=== PATIENT | male | born 1980 | race Hispanic/Latino ===

== ENCOUNTER 2018-02-15 11:09 | Outpatient (CLI) | payer BC ==
--- NOTE | 2018-02-15 11:55 | XRay Report ---
XRAY CHEST TWO VIEWS: 02/15/18 11:09:00 CLINICAL: Cough. COMPARISON: None FINDINGS: Normal heart and pulmonary vasculature. The lungs are normally expanded and clear.Mild degenerative changes in the spine. IMPRESSION: Negative chest with no acute cardiopulmonary process.
== END 2018-02-15 11:10 | disposition home or self-care (01) ==
LOC: SPVIMAG 11:09
PROVIDERS: ATTEND Internal Medicine
DX: J06.9 Acute upper respiratory infection, unspecified (principal)
CPT/HCPCS: 71046